=== PATIENT | female | born 1950 | race Caucasian/White ===

== ENCOUNTER 2022-01-13 11:49 | Emergency (ER) | payer SELFPAY ==
[~2022-01-13] VITALS: Ht 160 cm; Wt 75.0 kg
[2022-01-13 11:53] VITALS: BP 157/73
== END 2022-01-13 17:45 | disposition home or self-care (01) ==
LOC: ER 11:49
DX: I10 Essential (primary) hypertension (principal); Z59.00 Homelessness unspecified
CPT/HCPCS: 99281